=== PATIENT | female | born 1985 | race American Indian/Alaskan Native ===

== ENCOUNTER 2016-12-05 16:59 | Emergency (ER) | payer SELFPAY ==
--- NOTE | 2016-12-05 19:17 | Cat Scan Report ---
FINAL REPORT PROCEDURE: CT HEAD/BRAIN WO CON TECHNIQUE: Computerized tomography of the head was performed without contrast material. HISTORY: Loss of consciousness COMPARISON: No prior studies are available for comparison. FINDINGS: No CT evidence of intracranial mass, hemorrhage, acute territorial infarction, or hydrocephalus. Calvarium is intact. Visualized paranasal sinuses and mastoids are aerated. IMPRESSION: No CT evidence of acute abnormality
[2016-12-05 23:22] VITALS: BP 111/79
[2016-12-05] MEDS ORDERED: TORADOL IM ONE (23:24)
--- NOTE | 2016-12-05 23:30 | Emergency Department Report ---
ED Fall HPI - General Chief Complaint: Fall Stated Complaint: FALL DOWN STEPS Time Seen by Provider: 12/05/16 23:17 Source: patient Mode of arrival: Ambulatory - History of Present Illness Complaint: fall -: Sudden, This afternoon Fall From: down stairs (#) When Fall Occurred: just prior to arrival Fall Witnessed: yes, by family Place Fall Occurred: home Loss of Consciousness: unsure Prolonged Down Time?: no Symptoms Prior to Fall: none Location: head, back Severity: moderate Severity scale (0 -10): 7 Associated Symptoms: denies: headache, neck pain, numbness, weakness, chest paint, shortness of breath, abdominal pain, hematuria, unable to walk, lightheaded, vertigo, confusion - Related Data Previous Rx's Medication Instructions Recorded Last Taken Type Acetaminophen/Codeine 1 tab PO Q6H PRN #14 tab 04/01/14 Unknown Rx [Acetaminophen-Codeine #3 TAB] HYDROcodone/APAP 5-325 [[place] 1 each PO Q6H PRN #20 tablet 02/14/15 Unknown Rx 5-325 mg TAB] Ibuprofen [Motrin 600 MG tab] 600 mg PO Q6H PRN #100 tablet 02/14/15 Unknown Rx Ferrous Sulfate [Feosol 325 MG tab] 325 mg PO TID #90 tablet 01/25/16 Unknown Rx Ibuprofen [Motrin 600 MG tab] 600 mg PO Q6H PRN #60 tablet 01/25/16 Unknown Rx Pnv95/Ferrous Fumarate/FA 1 each PO 4XW #30 tablet 01/25/16 Unknown Rx [ [place]] Metaxalone [Skelaxin] 800 mg PO TID #30 tablet 12/06/16 Unknown Rx Naproxen [Naprosyn] 500 mg PO BID #14 tablet 12/06/16 Unknown Rx Allergies Allergy/AdvReac Type Severity Reaction Status Date / Time No Known Allergies Allergy Verified 02/01/15 23:17 ED Review of Systems ROS: Stated complaint: FALL DOWN STEPS Other details as noted in HPI Comment: All other systems reviewed and negative ED Past Medical Hx - Past Medical History Hx Hypertension: No Hx Congestive Heart Failure: No Hx Diabetes: No Hx Deep Vein Thrombosis: No Hx Renal Disease: No Hx Sickle Cell Disease: No Hx Seizures: No Hx Asthma: No Hx COPD: No Hx HIV: No - Surgical History Past Surgical History?: Yes Additional Surgical History: wrist - Social History Smoking Status: Never Smoker Substance Use Type: None - Medications Home Medications: Home Medications Medication Instructions Recorded Confirmed Last Taken Type Acetaminophen/Codeine 1 tab PO Q6H PRN #14 tab 04/01/14 02/14/15 Unknown Rx [Acetaminophen-Codeine #3 TAB] HYDROcodone/APAP 5-325 [[place] 1 each PO Q6H PRN #20 tablet 02/14/15 Unknown Rx 5-325 mg TAB] Ibuprofen [Motrin 600 MG tab] 600 mg PO Q6H PRN #100 tablet 02/14/15 Unknown Rx Ferrous Sulfate [Feosol 325 MG tab] 325 mg PO TID #90 tablet 01/25/16 Unknown Rx Ibuprofen [Motrin 600 MG tab] 600 mg PO Q6H PRN #60 tablet 01/25/16 Unknown Rx Pnv95/Ferrous Fumarate/FA 1 each PO 4XW #30 tablet 01/25/16 Unknown Rx [ [place]] Metaxalone [Skelaxin] 800 mg PO TID #30 tablet 12/06/16 Unknown Rx Naproxen [Naprosyn] 500 mg PO BID #14 tablet 12/06/16 Unknown Rx ED Physical Exam - General Limitations: No Limitations General appearance: alert, in no apparent distress - Head Head exam: Present: atraumatic - Eye Eye exam: Present: normal appearance - ENT ENT exam: Present: normal exam, normal orophraynx - Neck Neck exam: Present: normal inspection, full ROM. Absent: tenderness, meningismus - Respiratory Respiratory exam: Present: normal lung sounds bilaterally. Absent: stridor - Cardiovascular Cardiovascular Exam: Present: regular rate - GI/Abdominal GI/Abdominal exam: Present: soft. Absent: distended, tenderness, guarding - Extremities Exam Extremities exam: Present: normal inspection - Back Exam Back exam: Present: normal inspection, tenderness, muscle spasm, paraspinal tenderness. Absent: CVA tenderness (L) - Neurological Exam Neurological exam: Present: alert, oriented X3, CN II-XII intact, normal gait. Absent: abnormal gait, motor sensory deficit - Skin Skin exam: Present: warm, dry, intact ED Course Vital Signs 12/05/16 12/05/16 12/05/16 17:10 23:21 23:22 Temperature 98.3 F 98 F Pulse Rate 67 76 Respiratory 16 18 18 Rate Blood Pressure 108/78 Blood Pressure 111/79 [Left] O2 Sat by Pulse 96 98 Oximetry - Reevaluation(s) Reevaluation #1: 12/06/16 01:18 PATIENT STATED THAT SHE FEEL MUCH BETTER Critical care attestation.: If time is entered above; I have spent that time in minutes in the direct care of this critically ill patient, excluding procedure time. ED Disposition Clinical Impression: Head injury, Back injury Disposition: - TO HOME OR SELFCARE Is pt being admited?: No Does the pt Need Aspirin: No Condition: Stable Instructions: Minor Head Injury (ED), Back Pain (ED) Prescriptions: Metaxalone [Skelaxin] 800 mg PO TID #30 tablet Naproxen [Naprosyn] 500 mg PO BID #14 tablet Referrals: PRIMARY CARE, [Primary Care Provider] - 3-5 Days Time of Disposition: 01:26
[2016-12-06] MEDS ORDERED: MORPHINE IM ONE (01:24)
[2016-12-06] MEDS ORDERED: ZOFRAN IM ONE (01:25)
--- NOTE | 2016-12-06 08:50 | XRay Report ---
LUMBOSACRAL SPINE, 3 VIEWS: History: Back pain Findings: The vertebral bodies, disk spaces and posterior elements are intact. No compression deformity or malalignment. The SI joints are symmetric and unremarkable. Multiple surgical clips in the right paraspinal region are noted, please call history. Impression: 1. No evidence for acute injury to the lumbar spine.
--- NOTE | 2016-12-06 08:51 | XRay Report ---
THORACIC SPINE, 2 views: History: Back injury, pain. The bones are normally mineralized with well preserved vertebral height, alignment and interspace distances. No paraspinal soft tissue widening is noted. IMPRESSION: Normal study.
== END 2016-12-06 01:54 | disposition home or self-care (01) ==
LOC: ED 16:59
DX: S09.90XA Unspecified injury of head, initial encounter (principal); S39.92XA Unspecified injury of lower back, initial encounter; W10.9XXA Fall (on) (from) unspecified stairs and steps, initial encounter; Y93.89 Activity, other specified; Y92.89 Other specified places as the place of occurrence of the external cause; Y99.8 Other external cause status
CPT/HCPCS: 70450; 72070; 72100; 81025; 96372; 99284; J1885; J2270; J2405

== ENCOUNTER 2017-03-31 09:43 | Emergency (ER) | payer SELFPAY ==
[2017-03-31 10:51] LABS: Basophils % (Auto) 2.1 % (0.0-1.8); Eosinophils % (Auto) 1.6 % (0.0-4.3); Hematocrit 36.2 % (30.3-42.9); Hemoglobin 12.6 gm/dl (10.1-14.3); Mean Corpuscular HGB Conc 35 % (30-34); Mean Corpuscular Hemoglobin 31 pg (28-32); Mean Corpuscular Volume 89 fl (79-97); Platelet Count 283 K/mm3 (140-440); Red Blood Count 4.08 M/mm3 (3.65-5.03); Red Cell Distribution Width 13.6 % (13.2-15.2); White Blood Count 3.1 K/mm3 (4.5-11.0)
[2017-03-31 11:26] LABS: Anion Gap 20 mmol/L; BUN/Creatinine Ratio 15; Blood Urea Nitrogen 9 mg/dL (7-17); Calcium 9.2 mg/dL (8.4-10.2); Carbon Dioxide 24 mmol/L (22-30); Chloride 101.8 mmol/L (98-107); Glucose 100 mg/dL (65-100); Potassium 4.7 mmol/L (3.6-5.0); Sodium 141 mmol/L (137-145)
--- NOTE | 2017-03-31 13:50 | Emergency Department Report ---
ED Female HPI - General Chief complaint: Vaginal Bleeding Stated complaint: VAGINAL BLEEDING Time Seen by Provider: 03/31/17 13:30 Source: patient, RN notes reviewed Mode of arrival: Ambulatory Limitations: No Limitations - History of Present Illness Initial comments: This is a 31-year-old female, the patient is previously unknown to this provider. Does not have a primary care doctor, does not have a local liquefied natural gas operator. Patient reports having had an IUD placed 1 year ago. After having the IUD placed, patient had intermittent vaginal bleeding. Vaginal bleeding subsided. Patient reports recent onset of vaginal bleeding approximately one and a half weeks ago, typically which isn't sided bisexual intimacy. The bleeding is intermittent. It is painless. Patient has no dizziness, lightheadedness, chest pain, shortness of breath or abdominal pain. Patient reports that her sexual partner does not wear condoms, patient reports that her sexual partner is somewhat vigorous and "rough." She also describes dysuria. Patient does not use lubricants during sexual intercourse. MD Complaint: vaginal bleeding -: Gradual Severity: mild Consistency: intermittent Improves with: other (rest) Worsens with: other (sex) Are you Now?: Yes Associated Symptoms: vaginal discharge, vaginal bleeding, dysuria - Related Data Sexually active: Yes Previous Rx's Medication Instructions Recorded Last Taken Type Acetaminophen/Codeine 1 tab PO Q6H PRN #14 tab 04/01/14 Unknown Rx [Acetaminophen-Codeine #3 TAB] HYDROcodone/APAP 5-325 [[place] 1 each PO Q6H PRN #20 tablet 02/14/15 Unknown Rx 5-325 mg TAB] Ibuprofen [Motrin 600 MG tab] 600 mg PO Q6H PRN #100 tablet 02/14/15 Unknown Rx Ferrous Sulfate [Feosol 325 MG tab] 325 mg PO TID #90 tablet 01/25/16 Unknown Rx Ibuprofen [Motrin 600 MG tab] 600 mg PO Q6H PRN #60 tablet 01/25/16 Unknown Rx Pnv No.95/Ferrous Fum/Folic AC 1 each PO 4XW #30 tablet 01/25/16 Unknown Rx [ [place]] Metaxalone [Skelaxin] 800 mg PO TID #30 tablet 12/06/16 Unknown Rx Naproxen [Naprosyn] 500 mg PO BID #14 tablet 12/06/16 Unknown Rx Allergies Allergy/AdvReac Type Severity Reaction Status Date / Time No Known Allergies Allergy Verified 03/31/17 10:11 ED Review of Systems ROS: Stated complaint: VAGINAL BLEEDING Other details as noted in HPI Constitutional: denies: fever Eyes: denies: vision change ENT: denies: epistaxis Respiratory: denies: cough Cardiovascular: denies: chest pain Gastrointestinal: denies: vomiting Genitourinary: dysuria, discharge, abnormal menses. denies: hematuria Musculoskeletal: denies: back pain Skin: denies: lesions Neurological: denies: weakness ED Past Medical Hx - Past Medical History Previous Medical History?: No Hx Hypertension: No Hx Congestive Heart Failure: No Hx Diabetes: No Hx Deep Vein Thrombosis: No Hx Renal Disease: No Hx Sickle Cell Disease: No Hx Seizures: No Hx Asthma: No Hx COPD: No Hx HIV: No - Surgical History Past Surgical History?: No Additional Surgical History: wrist - Social History Smoking Status: Never Smoker Substance Use Type: None - Medications Home Medications: Home Medications Medication Instructions Recorded Confirmed Last Taken Type Acetaminophen/Codeine 1 tab PO Q6H PRN #14 tab 04/01/14 02/14/15 Unknown Rx [Acetaminophen-Codeine #3 TAB] HYDROcodone/APAP 5-325 [[place] 1 each PO Q6H PRN #20 tablet 02/14/15 Unknown Rx 5-325 mg TAB] Ibuprofen [Motrin 600 MG tab] 600 mg PO Q6H PRN #100 tablet 02/14/15 Unknown Rx Ferrous Sulfate [Feosol 325 MG tab] 325 mg PO TID #90 tablet 01/25/16 Unknown Rx Ibuprofen [Motrin 600 MG tab] 600 mg PO Q6H PRN #60 tablet 01/25/16 Unknown Rx Pnv No.95/Ferrous Fum/Folic AC 1 each PO 4XW #30 tablet 01/25/16 Unknown Rx [ [place]] Metaxalone [Skelaxin] 800 mg PO TID #30 tablet 12/06/16 Unknown Rx Naproxen [Naprosyn] 500 mg PO BID #14 tablet 12/06/16 Unknown Rx ED Physical Exam - General Limitations: No Limitations General appearance: alert, in no apparent distress - Head Head exam: Present: atraumatic, normocephalic - Eye Eye exam: Present: normal appearance, EOMI. Absent: nystagmus - ENT ENT exam: Present: normal exam, normal orophraynx, mucous membranes moist, normal external ear exam - Neck Neck exam: Present: normal inspection, full ROM. Absent: tenderness, meningismus - Respiratory Respiratory exam: Present: normal lung sounds bilaterally. Absent: respiratory distress, wheezes, rales, rhonchi, stridor, chest wall tenderness - Cardiovascular Cardiovascular Exam: Present: regular rate, normal rhythm, normal heart sounds. Absent: bradycardia, tachycardia, irregular rhythm, systolic murmur, diastolic murmur, rubs, gallop - GI/Abdominal GI/Abdominal exam: Present: soft, normal bowel sounds. Absent: distended, tenderness, guarding, rebound, rigid, pulsatile mass - External exam: Present: normal external exam. Absent: erythema, swelling Speculum exam: Present: normal speculum exam, vaginal discharge, vaginal bleeding Bi-manual exam: Present: normal bi-manual exam, other (escorted by [facility]). Absent: cervical motion tendernes, adnexal tenderness, adnexal mass, uterine enlargement, uterine tenderness - Extremities Exam Extremities exam: Present: normal inspection, full ROM, normal capillary refill. Absent: pedal edema, joint swelling, calf tenderness - Back Exam Back exam: Present: normal inspection, full ROM. Absent: tenderness, CVA tenderness (R), CVA tenderness (L), muscle spasm, paraspinal tenderness, vertebral tenderness - Neurological Exam Neurological exam: Present: alert, oriented X3, normal gait, other (Extraocular movements intact. Tongue midline. No facial droop. Facial sensation intact to light touch in the V1, V2, V3 distribution bilaterally. 5 and 5 strength in 4 extremities.. Sensation is intact to light touch in 4 extremities.). Absent : motor sensory deficit - Psychiatric Psychiatric exam: Present: normal affect, normal mood - Skin Skin exam: Present: warm, dry, intact, normal color. Absent: rash ED Course Vital Signs 03/31/17 10:11 Temperature 98.1 F Pulse Rate 83 Blood Pressure 104/60 O2 Sat by Pulse 100 Oximetry - Reevaluation(s) Reevaluation #1: 03/31/17 14:49 No abdominal tenderness, no gynecologic tenderness, therefore think pelvic inflammatory disease very unlikely. Reevaluation #2: 03/31/17 15:23 The wet prep demonstrates trichomoniasis. Urinalysis not convincing for urinary tract infection. Patient will be treated empirically For gonorrhea, chlamydia, trichomoniasis ED Medical Decision Making - Lab Data Result diagrams: 03/31/17 10:22 03/31/17 10:22 Vital Signs 03/31/17 10:11 Temperature 98.1 F Pulse Rate 83 Blood Pressure 104/60 O2 Sat by Pulse 100 Oximetry Lab Results 03/31/17 03/31/17 03/31/17 Range/Units 10:22 10: 10:22 WBC 3.1 L (4.5-11.0) K/mm3 RBC 4.08 (3.65-5.03) M/mm3 Hgb 12.6 (10.1-14.3) gm/dl Hct 36.2 (30.3-42.9) % MCV 89 (79-97) fl MCH 31 (28-32) pg MCHC 35 H (30-34) % RDW 13.6 (13.2-15.2) % Plt Count 283 (140-440) K/mm3 Lymph % (Auto) 48.6 H (13.4-35.0) % [place] % (Auto) 9.8 H (0.0-7.3) % Eos % (Auto) 1.6 (0.0-4.3) % Baso % (Auto) 2.1 H (0.0-1.8) % Lymph # 1.5 (1.2-5.4) K/mm3 [place] # 0.3 (0.0-0.8) K/mm3 Eos # 0.0 (0.0-0.4) K/mm3 Baso # 0.1 (0.0-0.1) K/mm3 Seg Neutrophils % 37.9 L (40.0-70.0) % Seg Neutrophils # 1.2 L (1.8-7.7) K/mm3 Sodium 141 (137-145) mmol/L Potassium 4.7 (3.6-5.0) mmol/L Chloride 101.8 (98-107) mmol/L Carbon Dioxide 24 (22-30) mmol/L Anion Gap 20 mmol/L BUN 9 (7-17) mg/dL Creatinine 0.6 L (0.7-1.2) mg/dL Estimated GFR > 60 ml/min BUN/Creatinine Ratio 15 % Glucose 100 (65-100) mg/dL Calcium 9.2 (8.4-10.2) mg/dL HCG, Quant < 2 (0-4) mIU/mL Blood Type Antibody Screen 03/31/17 Range/Units 10:25 WBC (4.5-11.0) K/mm3 RBC (3.65-5.03) M/mm3 Hgb (10.1-14.3) gm/dl Hct (30.3-42.9) % MCV (79-97) fl MCH (28-32) pg MCHC (30-34) % RDW (13.2-15.2) % Plt Count (140-440) K/mm3 Lymph % (Auto) (13.4-35.0) % [place] % (Auto) (0.0-7.3) % Eos % (Auto) (0.0-4.3) % Baso % (Auto) (0.0-1.8) % Lymph # (1.2-5.4) K/mm3 [place] # (0.0-0.8) K/mm3 Eos # (0.0-0.4) K/mm3 Baso # (0.0-0.1) K/mm3 Seg Neutrophils % (40.0-70.0) % Seg Neutrophils # (1.8-7.7) K/mm3 Sodium (137-145) mmol/L Potassium (3.6-5.0) mmol/L Chloride (98-107) mmol/L Carbon Dioxide (22-30) mmol/L Anion Gap mmol/L BUN (7-17) mg/dL Creatinine (0.7-1.2) mg/dL Estimated GFR ml/min BUN/Creatinine Ratio % Glucose (65-100) mg/dL Calcium (8.4-10.2) mg/dL HCG, Quant (0-4) mIU/mL Blood Type B POSITIVE Antibody Screen Negative - Medical Decision Making Differential diagnosis: Post coital bleeding, urinary tract infection, vaginal bleeding Assessment and plan: 31-year-old female who is not , complains of dysuria, with an indwelling IUD, noted on physical exam, with the complaint of post coital bleeding. She is afebrile with reassuring vital signs, laboratory studies unremarkable, and appears quite comfortable. Patient encouraged to have her partner use adequate lubrication during intimacy, patient is suitable to follow-up in outpatient primary care doctor or liquefied natural gas operator today. there does not appear to be any emergent condition at this time. Critical care attestation.: If time is entered above; I have spent that time in minutes in the direct care of this critically ill patient, excluding procedure time. ED Disposition Clinical Impression: Vaginal bleeding, Trichomoniasis Disposition: DC- TO HOME OR SELFCARE Is pt being admited?: No Does the pt Need Aspirin: No Condition: Stable Instructions: Menstruation (ED) Additional Instructions: Cultures were sent today, results will be available in the next 3-5 days. A primary care doctor or liquefied natural gas operator contact medical records department to obtain culture results. Follow up with her liquefied natural gas operator within the next month. Make certain to have sexual partner wear condoms during sex, and to use plenty of lubrication. Return to the ER right away with bleeding more than 2 pads per hour, dizziness, lightheadedness, chest pain, shortness of breath, intractable nausea or vomiting, confusion, inability to tolerate liquid feeds, new, worsening or different symptoms. Wet prep demonstrated presence of trichomoniasis, which is typically a sexually transmitted disease. Patient was given antibiotics to cover gonorrhea, chlamydia, trichomoniasis. Do not consume alcohol for the next week. We typically treat young females with unexplained lower abdominal pain to protect your ability to have children safely in the future. Cultures were sent today, and results will be available next 3-5 days. Please have your primary care doctor call the medical records department to obtain your culture results. Take the antibiotic therapy as directed. Take the nausea medication and pain medication as directed. I recommend outpatient testing for sexually transmitted diseases, including hepatitis, syphilis and HIV. I also recommend that you abstain from sexual activity until you have completed her antibiotic therapy, a physician states that it is safe for you to resume sexual activity, and any partners that you have been sexually active with have been tested/ treated/evaluated for sexual transmitted diseases. Please follow-up with physician within 3-5 days. I recommend that you return to the ER right away with worsening pain, migration of pain, intractable nausea/vomiting, inability tolerate liquid feeds. Referrals: PRIMARY CARE [Primary Care Provider] - 3-5 Days [facility] [Provider Group] - 3-5 Days [facility] [Provider Group] - 3-5 Days [facility] [Provider Group] - 3-5 Days
[2017-03-31 14:52] LABS: Bacteria,Urine 1+ /HPF (Negative); Bilirubin,Urine NEG (Negative); Blood,Urine SM (Negative); Ketones,Urine NEG (Negative); Leukocyte Esterase,Urine NEG (Negative); Mucus,Urine 2+ /HPF; Nitrite,Urine NEG (Negative); Protein,Urine <15 mg/dL mg/dL (Negative)
[2017-03-31] MEDS ORDERED: XYLOCAINE 1% MPF 5 mL INFILTRATI ONE (15:06)
[2017-03-31] MEDS ORDERED: FLAGYL PO STA (15:06)
[2017-03-31] MEDS ORDERED: ROCEPHIN IM ONE (15:06)
[2017-03-31] MEDS ORDERED: ZITHROMAX PO ONE (15:06)
[2017-03-31 15:33] VITALS: BP 98/65
== END 2017-03-31 16:29 | disposition home or self-care (01) ==
LOC: ED 09:43
DX: A59.9 Trichomoniasis, unspecified (principal); N93.9 Abnormal uterine and vaginal bleeding, unspecified
CPT/HCPCS: 36415; 80048; 81001; 84702; 85025; 86850; 86900; 86901; 87210; 87591; 96372; 99284; J0696

== ENCOUNTER 2018-12-10 14:08 | Emergency (ER) | payer OTHER ==
[2018-12-10 14:33] VITALS: BP 102/67
--- NOTE | 2018-12-10 14:34 | Emergency Department Report ---
ED ENT HPI - General Chief complaint: Dental/Oral Stated complaint: JAW SWOLLEN Time Seen by Provider: 12/10/18 14:29 Source: patient Mode of arrival: Ambulatory Limitations: No Limitations - History of Present Illness Initial comments: pt presents with left upper dental pain that began yesterday. she has left facial edema. pt states she has a cracked tooth on that side, saw a dentist in june 2018, had two teeth extraction on the other side. no fever. PMHx none, no allergies to meds. pt is tolerating secretions with no difficulty. pt has a IUD for control. - Related Data Previous Rx's Medication Instructions Recorded Last Taken Type Acetaminophen/Codeine 1 tab PO Q6H PRN #14 tab 04/01/14 Unknown Rx [Acetaminophen-Codeine #3 TAB] HYDROcodone/APAP 5-325 [[place] 1 each PO Q6H PRN #20 tablet 02/14/15 Unknown Rx 5-325 mg TAB] Ibuprofen [Motrin 600 MG tab] 600 mg PO Q6H PRN #100 tablet 02/14/15 Unknown Rx Ferrous Sulfate [Feosol 325 MG tab] 325 mg PO TID #90 tablet 01/25/16 Unknown Rx Ibuprofen [Motrin 600 MG tab] 600 mg PO Q6H PRN #60 tablet 01/25/16 Unknown Rx Pnv No.95/Ferrous Fum/Folic AC 1 each PO 4XW #30 tablet 01/25/16 Unknown Rx [ [place]] Metaxalone [Skelaxin] 800 mg PO TID #30 tablet 12/06/16 Unknown Rx Naproxen [Naprosyn] 500 mg PO BID #14 tablet 12/06/16 Unknown Rx Acetaminophen/Codeine [Tylenol 1 tab PO Q6H PRN #10 tab 12/10/18 Unknown Rx /Codeine # 3 tab] Ibuprofen [Motrin 800 MG tab] 800 mg PO Q8HR PRN #20 tablet 12/10/18 Unknown Rx Penicillin Vk [Veetids TAB] 500 mg PO QID 7 Days #56 tablet 12/10/18 Unknown Rx Allergies Allergy/AdvReac Type Severity Reaction Status Date / Time No Known Allergies Allergy Verified 03/31/17 10:11 ED Dental HPI - General Chief complaint: Dental/Oral Stated complaint: JAW SWOLLEN Time Seen by Provider: 12/10/18 14:29 Source: patient Mode of arrival: Ambulatory Limitations: No Limitations - Related Data Previous Rx's Medication Instructions Recorded Last Taken Type Acetaminophen/Codeine 1 tab PO Q6H PRN #14 tab 04/01/14 Unknown Rx [Acetaminophen-Codeine #3 TAB] HYDROcodone/APAP 5-325 [[place] 1 each PO Q6H PRN #20 tablet 02/14/15 Unknown Rx 5-325 mg TAB] Ibuprofen [Motrin 600 MG tab] 600 mg PO Q6H PRN #100 tablet 02/14/15 Unknown Rx Ferrous Sulfate [Feosol 325 MG tab] 325 mg PO TID #90 tablet 01/25/16 Unknown Rx Ibuprofen [Motrin 600 MG tab] 600 mg PO Q6H PRN #60 tablet 01/25/16 Unknown Rx Pnv No.95/Ferrous Fum/Folic AC 1 each PO 4XW #30 tablet 01/25/16 Unknown Rx [ Caplet] Metaxalone [Skelaxin] 800 mg PO TID #30 tablet 12/06/16 Unknown Rx Naproxen [Naprosyn] 500 mg PO BID #14 tablet 12/06/16 Unknown Rx Acetaminophen/Codeine [Tylenol 1 tab PO Q6H PRN #10 tab 12/10/18 Unknown Rx /Codeine # 3 tab] Ibuprofen [Motrin 800 MG tab] 800 mg PO Q8HR PRN #20 tablet 12/10/18 Unknown Rx Penicillin Vk [Veetids TAB] 500 mg PO QID 7 Days #56 tablet 12/10/18 Unknown Rx Allergies Allergy/AdvReac Type Severity Reaction Status Date / Time No Known Allergies Allergy Verified 03/31/17 10:11 ED Review of Systems ROS: Stated complaint: JAW SWOLLEN Other details as noted in HPI Comment: All other systems reviewed and negative ED Past Medical Hx - Past Medical History Previous Medical History?: No Hx Hypertension: No Hx Congestive Heart Failure: No Hx Diabetes: No Hx Deep Vein Thrombosis: No Hx Renal Disease: No Hx Sickle Cell Disease: No Hx Seizures: No Hx Asthma: No Hx COPD: No Hx HIV: No - Surgical History Past Surgical History?: No Additional Surgical History: wrist - Social History Smoking Status: Never Smoker Substance Use Type: None - Medications Home Medications: Home Medications Medication Instructions Recorded Confirmed Last Taken Type Acetaminophen/Codeine 1 tab PO Q6H PRN #14 tab 04/01/14 02/14/15 Unknown Rx [Acetaminophen-Codeine #3 TAB] HYDROcodone/APAP 5-325 [[place] 1 each PO Q6H PRN #20 tablet 02/14/15 Unknown Rx 5-325 mg TAB] Ibuprofen [Motrin 600 MG tab] 600 mg PO Q6H PRN #100 tablet 02/14/15 Unknown Rx Ferrous Sulfate [Feosol 325 MG tab] 325 mg PO TID #90 tablet 01/25/16 Unknown Rx Ibuprofen [Motrin 600 MG tab] 600 mg PO Q6H PRN #60 tablet 01/25/16 Unknown Rx Pnv No.95/Ferrous Fum/Folic AC 1 each PO 4XW #30 tablet 01/25/16 Unknown Rx [ Caplet] Metaxalone [Skelaxin] 800 mg PO TID #30 tablet 12/06/16 Unknown Rx Naproxen [Naprosyn] 500 mg PO BID #14 tablet 12/06/16 Unknown Rx Acetaminophen/Codeine [Tylenol 1 tab PO Q6H PRN #10 tab 12/10/18 Unknown Rx /Codeine # 3 tab] Ibuprofen [Motrin 800 MG tab] 800 mg PO Q8HR PRN #20 tablet 12/10/18 Unknown Rx Penicillin Vk [Veetids TAB] 500 mg PO QID 7 Days #56 tablet 12/10/18 Unknown Rx ED Physical Exam - General Limitations: No Limitations General appearance: alert, in no apparent distress - Head Head exam: Present: atraumatic, normocephalic - Eye Eye exam: Present: normal appearance, PERRL - ENT ENT exam: Present: mucous membranes moist, other (left sided tooth missing in the left upper jaw with small reminent of tooth remaining with dental decay, area of induration to the gum where the tooth is missing, uvula is midline, no uvular edema) ED Course Vital Signs 12/10/18 14:28 Temperature 98.2 F Pulse Rate 80 Respiratory 18 Rate Blood Pressure 102/67 O2 Sat by Pulse 100 Oximetry ED Medical Decision Making - Medical Decision Making pt presents with left upper dental pain that began yesterday. she has left facial edema. pt states she has a cracked tooth on that side, saw a dentist in june 2018, had two teeth extraction on the other side. no fever. PMHx none, no allergies to meds. pt is tolerating secretions with no difficulty. pt has a IUD for control. VSS. on exam: left sided tooth missing in the left upper jaw with small reminent of tooth remaining with dental decay, area of induration to the gum where the tooth is missing, uvula is midline, no uvular edema. appears to have dental abscess. pt given abx, pain medicine, and anti- inflammatory. please take medication as prescribed. do not drive or operate heavy machinery while taking pain medication. it is very important that you follow up with a dentist in the next couple of days. return to the emergency room for any new or worsening symptoms. pt given list of community dental clinics. Critical care attestation.: If time is entered above; I have spent that time in minutes in the direct care of this critically ill patient, excluding procedure time. ED Disposition Clinical Impression: Dental caries, Dental abscess Disposition: TO HOME OR SELFCARE Is pt being admited?: No Does the pt Need Aspirin: No Condition: Stable Instructions: Dental Abscess (ED), Dental Caries (ED) Additional Instructions: please take medication as prescribed. do not drive or operate heavy machinery while taking pain medication. it is very important that you follow up with a dentist in the next couple of days. return to the emergency room for any new or worsening symptoms. Prescriptions: Ibuprofen [Motrin 800 MG tab] 800 mg PO Q8HR PRN #20 tablet PRN Reason: Pain, Moderate (4-6) Acetaminophen/Codeine [Tylenol /Codeine # 3 tab] 1 tab PO Q6H PRN #10 tab PRN Reason: Pain , Severe (7-10) Penicillin Vk [Veetids TAB] 500 mg PO QID 7 Days #56 tablet Referrals: CYNDEE RESENDIZ MD [Primary Care Provider] - 3-5 Days Time of Disposition: 14:34 Print Language: CHINESE
== END 2018-12-10 14:48 | disposition home or self-care (01) ==
LOC: ED 14:08
DX: K04.7 Periapical abscess without sinus (principal); K02.9 Dental caries, unspecified; Z79.899 Other long term (current) drug therapy
CPT/HCPCS: 99282